=== PATIENT | female | born 1965 | race Caucasian/White ===

== ENCOUNTER → 2017-08-06 | Outpatient (CLI) | payer OTHER ==
[~2017-08-06] MED LIST: CIPR500 PO; CITA20 PO; LORA1 PO; PHENA200 PO; PROM25 PO
[2017-08-08 13:03] LABS: HPV Genotype 16 Not Detected (NOTDET); HPV Genotype 18 Not Detected (NOTDET)
[2017-08-14 07:41] LABS: HPV High Risk Other Not Detected (NOTDET)
[2017-08-15 09:36] LABS: Source VAG/CERVIX
== END | disposition home or self-care (01) ==
LOC: LAB SHORT 12:51 → LAB 12:51
PROVIDERS: Obstetrics & Gynecology
DX: Z01.419 Encounter for gynecological examination (general) (routine) without abnormal findings (principal)
CPT/HCPCS: 87624; G0123

== ENCOUNTER 2017-10-17 10:16 | Day surgery (SDC) | payer OTHER ==
[~2017-10-17 10:16] MED LIST changes: +MONT10T; +VARE1
== END 2017-10-17 22:44 | disposition home or self-care (01) ==
LOC: MOI MAM 10:16
PROC: 0HBT3ZX Excision of Right Breast, Percutaneous Approach, Diagnostic (ICD-10-PCS; principal; 2017-10-17)
DX: N60.91 Unspecified benign mammary dysplasia of right breast (principal)
CPT/HCPCS: 19081; 88305

== ENCOUNTER 2017-12-19 08:00 | Day surgery (SDC) | payer OTHER ==
[2017-12-19] MEDS ORDERED: ALBU90OI6 (14:29)
== END 2017-12-19 22:51 | disposition home or self-care (01) ==
LOC: MOI MAM 08:00
PROC: BH00ZZZ Plain Radiography of Right Breast (ICD-10-PCS; principal; 2017-12-19)
DX: R92.0 Mammographic microcalcification found on diagnostic imaging of breast (principal)
CPT/HCPCS: 19281

== ENCOUNTER → 2017-12-23 | Outpatient (CLI) | payer OTHER ==
[~2017-12-23] MED LIST changes: +ALBU90OI6
== END | disposition home or self-care (01) ==
LOC: LAB SHORT 11:38 → LAB EV 11:38
DX: R31.9 Hematuria, unspecified (principal)
CPT/HCPCS: 87077; 87086; 87186

== ENCOUNTER → 2018-01-16 | Outpatient (CLI) | payer OTHER | LOC: LAB EV 09:38 → LAB SHORT 09:38 | DX: R30.0 Dysuria (principal) | CPT/HCPCS: 87086 ==

== ENCOUNTER 2023-11-11 14:38 | Emergency (ER) | payer OTHER ==
[~2023-11-11] VITALS: Ht 167.6 cm; Wt 82.5 kg
[~2023-11-11 14:38] MED LIST changes: +AZO; +OXYC5
[2023-11-11 14:47] VITALS: BP 179/87
[2023-11-11] MEDS ORDERED: Ketorolac Tromethamine 30mg Vial IM ONE (17:10)
[2023-11-11] MEDS ORDERED: CYCL10 PO (17:21)
== END 2023-11-11 17:27 | disposition home or self-care (01) ==
LOC: ER 14:38
DX: M25.512 Pain in left shoulder (principal); W22.8XXA Striking against or struck by other objects, initial encounter; F17.200 Nicotine dependence, unspecified, uncomplicated; Z79.899 Other long term (current) drug therapy
CPT/HCPCS: 73030; J1885